=== PATIENT | male | born 1950 | race Hispanic/Latino ===

== ENCOUNTER 2016-02-22 08:07 | Day surgery (SDC) | payer OTHER ==
[2016-02-22] MEDS ORDERED: ECOTRIN PO ONE (08:29)
[2016-02-22] MEDS ORDERED: NACL 0.9% 500 ML 500 ML IV SCH (09:00)
[2016-02-22] MEDS ORDERED: HEPARIN/NS 5000 UNIT/500ML(CATH LAB) 1,000 ML IR ONE (09:32)
[2016-02-22] MEDS ORDERED: NITROGLYCERIN SYRINGE 3 ML ONE (09:33)
[2016-02-22] MEDS: CALAN ONE ×2 (09:47→10:03)
[2016-02-22] MEDS: HEPARIN 10,000 UNITS/10 ML ONE ×2 (09:47→10:03)
[2016-02-22] MEDS: XYLOCAINE 2% INFILTRATI ONE ×2 (09:48→10:02)
[2016-02-22] MEDS: VERSED ONE ×2 (09:49→10:00)
[2016-02-22] MEDS: SUBLIMAZE ONE ×2 (09:49→10:00)
--- NOTE | 2016-02-22 11:01 | Short Stay Summary ---
Short Stay Documentation Date of service: 02/22/16 - Allergies and Medications Current Medications: Allergies promethazine HCl [From Phenergan] Allergy (Verified 02/22/16 08:37) HALLUCINATIONS Sulfa (Sulfonamide Antibiotics) Allergy (Unverified 02/22/16 08:07) Rash Home Medications Medication Instructions Recorded Confirmed Last Taken Type Doxazosin Mesylate [Cardura] 2 mg PO DAILY 02/22/16 02/22/16 02/21/16 History 2mg Ergocalciferol [Vitamin D2] 50,000 units PO DAILY 02/22/16 02/22/16 02/21/16 05: 15 History 16009 Fenofibrate [Fenofibrate] 160 mg PO HS 02/22/16 02/22/16 02/21/16 History 160mg Hydroxychloroquine [Plaquenil] 200 mg PO DAILY 02/22/16 02/22/16 02/21/16 History 200mg ISOSORBIDE MONOnitrate [Imdur ER] 30 mg PO DAILY 02/22/16 02/22/16 02/22/16 05: 15 History 30mg Lactobacillus Combination No.8 1 cap PO DAILY 02/22/16 02/22/16 02/22/16 05:15 History [Adult Probiotic] 1 cap Meloxicam [Meloxicam] 15 mg PO DAILY 02/22/16 02/22/16 02/22/16 05:15 History 15mg Mv,Ca,Min/Iron Fum/FA/Lyco/Lut 1 tab PO DAILY 02/22/16 02/22/16 02/22/16 05:15 History [Complete Multi Tablet] 1 tab Omega3,5,6,7,9 No.1/[place] Oil 1 tab PO DAILY 02/22/16 02/22/16 02/22/16 05:15 History [Complete [place] Softgel] 1 tab Testosterone Undecanoate [Aveed] 250 mg IM Q2W 02/22/16 02/22/16 02/11/16 History 250mg amLODIPine [Norvasc] 10 mg PO DAILY 02/22/16 02/22/16 02/22/16 05:15 History 10mg Active Medications Sodium Chloride (Nacl 0.9% 500 Ml) 500 mls @ 50 mls/hr IV DIRECT ALEJANDRA Stop: 02/22/16 18:59 Last Admin: 02/22/16 09:15 Dose: 50 mls/hr - Brief post op/procedure progress note Date of procedure: 02/22/16 Pre-op diagnosis: chest pain and sob Post-op diagnosis: same Procedure: see report Anesthesia: local Estimated blood loss: none Pathology: none - Disposition Condition at discharge: Good Disposition: DISCHARGED TO HOME OR SELFCARE - Discharge Diagnoses (1) CAD (coronary artery disease) Status: Chronic Qualifiers: Coronary Disease-Associated Artery/Lesion type: [place] artery [place] vs. transplanted heart: [place] heart Associated angina: without angina Qualified Code(s): I25.10 - Atherosclerotic heart disease of [place] coronary artery without angina pectoris (2) Tobacco abuse Status: Chronic (3) SOB (shortness of breath) on exertion Status: Chronic (4) Chest pain Status: Acute Qualifiers: Chest pain type: unspecified Qualified Code(s): R07.9 - Chest pain, unspecified (5) Hypertension Status: Acute Short Stay Discharge Plan Activity: advance as tolerated Wound: keep clean and dry Follow up with: ILENE NARANJO MD [Primary Care Provider] - 7 Days Forms: CardCath PCI D/C Instructions
--- NOTE | 2016-02-22 11:54 | Cardiac Catherization Report ---
LEFT HEART CATHETERIZATION CLINICAL INFORMATION: This is a 65-year-old patient with hypertension, hyperlipidemia, smoker, a pack a day, despite negative stress test has been having recurrent chest pain and shortness of breath, here for left heart catheterization. Left heart catheterization performed via the right radial artery. Normal Maximino's test, sterile technique, local anesthesia, 6-Cambodian radial sheath inserted. Left system engaged with a JL3.5 catheter. FINDINGS: Left main is a large caliber vessel. It is patent with mild luminal irregularities. LAD is a large caliber vessel that is patent with mild luminal irregularities. Diagonal 1 ostial is a medium caliber vessel, has an ostial 40% lesion. Circumflex and mid has a 40-50% lesion before the bifurcation of OM1 and OM2 that are patent. Ramus is a medium caliber vessel that is patent. RCA is a large dominant vessel that has diffuse disease, moderate, with focal areas of 20-30% proximal, mid, and distally. PDA is a medium caliber vessel, it is patent. PLV is a small caliber vessel, it is patent. LV gram done in POLISH and [place] view shows normal LV function. LVEDP of 25 mmHg, LV is 143/25, aortic is 135/72. No significant gradient across the aortic valve. 5-Cambodian catheters were taken over guidewire, 6-Cambodian radial sheath was discontinued. Radial dressing applied. No hematoma. No bleeding. SUMMARY: 1. Left main patent, LAD patent with mild luminal irregularities. Diagonal 1 ostial 40%, circumflex mid 40-50%, ramus patent. OM1, OM2 patent. RCA diffuse, 20-30%, proximal, mid and distally. PDA patent. 2. Normal LV function. 3. Nonobstructive coronary artery disease. RECOMMENDATION: Continue medical management. JOB# [id number] ARLEN/HAROON BLANTON
[2016-02-22 14:38] VITALS: BP 128/70
== END 2016-02-22 12:47 | disposition home or self-care (01) ==
LOC: OPU 08:07
PROVIDERS: ATTEND Internal Medicine
DX: I25.10 Atherosclerotic heart disease of native coronary artery without angina pectoris (principal); F17.210 Nicotine dependence, cigarettes, uncomplicated; I10 Essential (primary) hypertension; E78.2 Mixed hyperlipidemia; Z90.49 Acquired absence of other specified parts of digestive tract; Z98.890 Other specified postprocedural states
CPT/HCPCS: 82962; 93005; 93010; 93458; C1894; J1644; J2250; J3010; J7040; Q9967